=== PATIENT | male | born 1955 | race Caucasian/White ===

== ENCOUNTER → 2017-02-07 | Day surgery (SDC) | payer BC ==
[~2017-02-07] VITALS: Ht 182.9 cm; Wt 129.0 kg
[~2017-02-07] MED LIST: APIX1TAB3 PO; ASPI81TA28 PO; ATOR-22 PO; CARV6.252 PO; INDO50CA97 PO; LISI-792 PO; LOSA50TA6 PO; LPT/40 PO; PROPOFOL IV EMULSION 10 MG/ML 20 ML VIAL IV ONE
[2017-02-07 06:58] VITALS: BP 139/102; PULSE 98; TEMP 36.8; O2SAT 97; Ht 182.9 cm; Wt 129.0 kg
[2017-02-07 07:26] VITALS: BP 145/97; PULSE 88; O2SAT 99
[2017-02-07 07:29] VITALS: BP 134/87; PULSE 69; O2SAT 99
[2017-02-07 07:33] VITALS: BP 101/74; PULSE 68; O2SAT 99
--- NOTE | 2017-02-07 07:34 | History & Physical Bridge Note ---
H&P Re-Evaluation Bridge Note: I have examined the patient, reviewed the History & Physical and in the interval since the performance of the History & Physical I have noted the following changes of clinical significance: No changes noted
[2017-02-07 07:38] VITALS: BP 99/71; PULSE 69; O2SAT 99
--- NOTE | 2017-02-07 07:39 | Cardiology Procedure Brief Nt ---
Preliminary Cardiology Note Procedure Date Feb 07, 2017. 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 Patient tolerated well EKG Sinus rhythm with 1st degree AV block rate 72 bpm Recommendations Medical management Specimens None Anesthesia Per Dr Savage Complication(s) None Disposition Hydrogenation Still Operator holding Area
--- NOTE | 2017-02-07 07:44 | Discharge Instructions ---
Discharge Instructions Procedure Procedure Date: Feb 07, 2017. Reason for Visit: W/Anesthesia / Atrial Flutter (Dr Madrid To Do). Discharge Discharge Date: Feb 07, 2017. Discharge Diagnosis: Successful synchronized electrical cardioversion Last Recorded Wt (Kilograms): 129 Anesthesia Post Anesthesia Instructions: If you have had General Anesthesia or IV Sedation: * Do not drive today. * Resume driving when surgeon permits. * Do not make important decisions or sign legal documents today. * Call surgeon for: 1. Temperature elevations greater than 101 degrees F. 2. Uncontrollable pain. 3. Excessive bleeding. 4. Persistent nausea and vomiting. 5. Medication intolerance (nausea, vomiting or rash). * For nausea and vomiting use only clear liquids such as: tea, soda, bouillon until nausea subsides, then gradually increase diet as tolerated. * If you have any concerns or questions, call your surgeon's office. If physician is unavailable and it is an emergency, call 911 or go to the nearest emergency room. Instructions Activity Recommendations: limitations as noted below Return to School/Work: with the following limitations Recommended Home Diet: resume previous diet Allergies: Coded Allergies: NO KNOWN DRUG ALLERGIES (Verified Allergy, Unknown, ., 01/06/16) Provider Instructions ACTIVITY RECOMMENDATIONS: Resume activities as tolerated with no limitations unless specified. __ No lifting over __ pounds for 24 hours. __ Do not engage in vigorous exercise, sexual activity, or sports for 24 hours. __ Do not drive or operate any motorized equipment for 24 hours. __ You may return to work/school tomorrow. Follow Up Follow-up with: Follow up with Dr Madrid's office as scheduled Glenroy Scales Recommendations: Call your doctor if: * Temperature above 101 degrees * Pain not relieved by pain medicine ordered * There is increased drainage or redness from any incision * You have any unanswered questions or concerns. Your Doctors Instructions noted above were prepared by provider Maciej Madrid. Patient Signature Section: Patient Instructions Signature Page Anuj Connors Patient (or Guardian) Signature/Date: I have read and understand the instructions given to me by my caregivers. Caregiver/RN/Doctor Signature/Date: The above-named patient and/or guardian has received patient instructions on this date. + Original Patient Signature Page (only) stays with chart. Please make copy for patient.
--- NOTE | 2017-02-07 08:08 | CARDIOVERSION ---
DATE OF OPERATION: 02/07/2017 PROCEDURE: Synchronized ventricular cardioversion. INDICATIONS: Atrial flutter. BRIEF HISTORY: The patient is a 61-year-old male with atrial flutter with variable degree AV block, symptomatic, referred for synchronized electrical cardioversion after appropriate period of anticoagulation. DESCRIPTION OF PROCEDURE: After procedure and risks were explained in detail to the patient, informed consent was obtained. The patient was sedated through the anesthesia consultation with Dr. Savage with continuous heart rate, blood pressure, oxygenation saturation and end tidal CO2 monitoring. Single synchronized biphasic shock was administered with 150 joules with successful conversion to sinus rhythm. Postprocedure, the patient arouse having tolerated well. EKG demonstrated sinus rhythm with first degree AV block at a rate of 72. QT corrected at 435. RECOMMENDATIONS: Continued medical therapies, anticoagulation. Follow up is scheduled in approximately 10 days. I attest to the content of the Intraoperative Record and any orders documented therein. Any exception s are noted below.
[2017-02-07 08:14] VITALS: BP 130/95; PULSE 73; O2SAT 95
--- NOTE | 2017-02-07 08:19 | Anesthesiology Progress Note ---
Anesthesia Post Op Note Date & Time Feb 07, 2017 at 08:19 Vital Signs Pain Intensity: 0 Vital Signs Past 12 Hours Date Time Temp Pulse Resp B/P (MAP) Pulse Ox O2 Delivery O2 Flow Rate FiO2 02/07/17 08:14 73 18 130/95 (107) 95 Room Air 02/07/17 07:58 78 18 128/95 (106) 96 Room Air 02/07/17 07:48 73 18 110/65 (80) 95 Room Air 02/07/17 07:40 74 18 109/71 (84) 94 Room Air 02/07/17 07:38 69 16 99/71 99 Nasal Cannula 4 02/07/17 07:33 68 16 101/74 99 Nasal Cannula 4 02/07/17 07:29 69 16 134/87 99 Nasal Cannula 4 02/07/17 07:26 88 16 145/97 99 Nasal Cannula 4 02/07/17 06:58 36.8 98 16 139/102 97 Room Air Notes Mental Status: alert / awake / arousable, participated in evaluation Pt Amnestic to Procedure: Yes Nausea / Vomiting: adequately controlled Pain: adequately controlled Airway Patency, RR, SpO2: stable & adequate BP & HR: stable & adequate Hydration State: stable & adequate Anesthetic Complications: no major complications apparent
== END | disposition home or self-care (01) ==
LOC: C.CATH 06:16
PROVIDERS: ATTEND Internal Medicine Cardiovascular Disease
DX: I48.92 Unspecified atrial flutter (principal); I10 Essential (primary) hypertension; E66.01 Morbid (severe) obesity due to excess calories; G47.33 Obstructive sleep apnea (adult) (pediatric); E78.5 Hyperlipidemia, unspecified; R73.03 Prediabetes; Z87.891 Personal history of nicotine dependence; Z82.49 Family history of ischemic heart disease and other diseases of the circulatory system; Z83.3 Family history of diabetes mellitus; Z83.6 Family history of other diseases of the respiratory system; M10.9 Gout, unspecified; Z68.38 Body mass index [BMI] 38.0-38.9, adult

== ENCOUNTER → 2017-05-02 | Outpatient (CLI) | payer BC ==
[~2017-05-02] MED LIST changes: -ATOR-22 PO; -INDO50CA97 PO; -LISI-792 PO; -PROPOFOL IV EMULSION 10 MG/ML 20 ML VIAL IV ONE
--- NOTE | 2017-05-02 08:45 | DIAGNOSTIC IMAGING REPORT ---
RIGHT KNEE INCLUDING BILATERAL STANDING AP VIEWS (4 VIEWS) CLINICAL HISTORY: RIGHT KNEE PAIN COMPARISON: None. DISCUSSION: The standing bilateral AP views reveal bilateral medial joint compartment narrowing. There are no acute fractures. There is quadriceps insertional patellar spurring. IMPRESSION: 1. Mild osteoarthritic changes with medial joint compartment narrowing. No acute fractures. Electronically signed by: Armen Dobbs M.D. 05/02/2017 8:43 AM Dictated Date/Time: 05/02/2017 8:42 AM
== END | disposition home or self-care (01) ==
LOC: C.RDSM 09:07
PROVIDERS: ATTEND Physician Assistant
DX: M17.11 Unilateral primary osteoarthritis, right knee (principal)